=== PATIENT | male | born 1950 | race Caucasian/White ===

== ENCOUNTER 2022-01-24 15:26 | Emergency (ER) | payer OTHER ==
--- NOTE | 2022-01-24 18:13 | RAD REPORT ---
EXAM DESCRIPTION: CT - Head Brain Wo Cont - 01/24/2022 6:00 pm CLINICAL HISTORY: Vision loss COMPARISON: None TECHNIQUE: Computed axial tomography of the head was obtained. IV contrast was not requested. All CT scans are performed using dose optimization technique as appropriate and may include automated exposure control or mA/KV adjustment according to patient size. FINDINGS: An intracranial bleed is not seen . The ventricles are normal in caliber. No extra-axial fluid collection is noted. A small low-density area within the left cerebellum probably an old infarct. . Fluid within the sinuses/ mastoids is not seen. IMPRESSION: No acute intracranial abnormality is seen. If patient's symptoms persist MRI of the bra in would be recommended.
[2022-01-24 19:41] LABS: Hematocrit 42.8 % (39.6-49.0); Lymphocytes % 16.3 % (15.3-44.8); MCV 93.9 fL (80-100); MPV 8.3 fL (7.6-11.3); RBC Red Blood Cell Count 4.56 M/uL (4.33-5.43)
--- NOTE | 2022-01-24 20:29 | ER ---
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 ap3 [facility] and [facility] sent him here to be evaluated due to continued redness and vision loss. patient states the redness and vision loss have been present since the stroke in his eye 3.5 weeks ago. Coronavirus screen: At this time, the client does not indicate any symptoms associated with coronavirus-19. Ebola Screen: No symptoms or risks identified at this time. The patient reports a positive loss of vision. The patient's loss of vision began 3.5 weeks ago. Initial Sepsis Screen: Does the patient meet any 2 criteria? No. Patient's initial sepsis screen is negative. Does the patient have a suspected source of infection? No. Patient's initial sepsis screen is negative. Risk Assessment: Do you want to hurt yourself or someone else? Patient reports no desire to harm self or others. Onset of symptoms was December 31, 2021. 15:37 Method Of Arrival: Ambulatory ap3 15:37 Acuity: SVITLANA 3 ap3 Triage Assessment: 15:40 General: Appears in no apparent distress. Behavior is calm, cooperative. Pain: Denies ap3 pain. EENT: Sclera/Cornea are reddened in outer aspect of conjuctiva of right eye, iris of right eye and inner aspect of conjuctiva of right eye. Neuro: Level of Consciousness is awake, alert, obeys commands, Oriented to person, place, time, situation, Gait is steady, Speech is normal. Cardiovascular: Patient's skin is warm and dry. Respiratory: Airway is patent Respiratory effort is even, unlabored, Respiratory pattern is regular, symmetrical. GI: Patient currently denies nausea, vomiting. Historical: - Allergies: 15:39 No Known Allergies; ap3 - PMHx: 15:39 Myocardial infarction; Hypertensive disorder; Hypercholesterolemia; ap3 15:41 Chronic obstructive lung disease; PTSD; ap3 - Immunization history:: Client reports receiving the 2nd dose of the Covid vaccine. - Social history:: Smoking status: Patient denies any tobacco usage or history of. Screenin:41 Abuse screen: Denies threats or abuse. Nutritional screening: No deficits noted. ap3 Tuberculosis screening: No symptoms or risk factors identified. 19:00 Fall Risk None identified. ke1 Assessment: 16:40 General: Appears comfortable, Behavior is calm, cooperative, Reports. ha1 20:00 Reassessment: Patient appears in no apparent distress at this time. Patient and/or ke1 family updated on plan of care and expected duration. Pain level reassessed. Patient is alert, oriented x 3, equal unlabored respirations, skin warm/dry/pink. Patient states feeling better. wants to go home. Vital Signs: 15:37 BP 151 / 84; Pulse 64; Resp 18; Temp 98.1; Pulse Ox 96% ; Weight 73.94 kg; Height 5 ft. ap3 7 in. (170.18 cm); 16:40 BP 174 / 91; Pulse 63; Resp 16 S; Temp 98.4; Pulse Ox 97% on R/A; Weight 73.94 kg; Pain ha1 0/10; 17:35 BP 166 / 78; Pulse 60; Resp 16 S; Pulse Ox 96% on R/A; ha1 18:30 BP 165 / 78; Pulse 58; Resp 16 S; Pulse Ox 95% on R/A; ha1 21:04 BP 149 / 72; Pulse 62; Resp 18; Pulse Ox 97% on R/A; Pain 0/10; ke1 16:40 Body Mass Index 25.53 (73.94 kg, 170.18 cm) ha1 ED Course: 15:29 Patient arrived in ED. as 15:39 Triage completed. ap3 15:41 Arm band placed on left wrist. ap3 16:43 Yehuda Oh MD is Attending Physician. kdr 16:55 Payal Jenkins, JESSICA is Primary Nurse. ha1 18:02 CT Head Brain wo Cont In Process Unspecified. EDMS 19:00 Bed in low position. Side rails up X 1. Side rails up X2. ke1 19:04 Attending Physician role handed off by Yehuda Oh MD [facility] 19:04 Adrián Suggs MD is Attending Physician. [facility] 19:36 Inserted saline lock: 20 gauge in right antecubital area, using aseptic technique. ke1 20:27 Kj Aguero MD is Referral Physician. [facility] 21:02 No provider procedures requiring assistance completed. ke1 21:03 IV discontinued. ke1 Administered Medications: No medications were administered Medication: 21:03 VIS not applicable for this client. ke1 Outcome: 20:29 Discharge ordered by . 7 21:03 Discharged to home ambulatory. ke1 21:03 Condition: good 21:03 Discharge instructions given to patient. 21:05 Patient left the ED. ke1 Signatures: Dispatcher [employer] EDMS Yehuda Oh MD MD kdr Martinez, Amelia as Prokisch, Amanda RN RN ap3 Adrián Suggs MD MD [facility] Josette Medley RN RN ke1 Payal Jenkins RN RN 1
--- NOTE | 2022-01-24 20:29 | EDPHYS ---
Physician Documentation [facility] Name: Jalen Luong Age: 71 yrs Sex: Male : 1950 Arrival Date: 01/24/2022 Time: 15:29 Bed 19 Private MD: ED Physician Adrián Suggs HPI: 01/24 17:14 This 71 yrs old Male presents to ER via Ambulatory with complaints of Loss Of Vision, kdr Eye Pain. 17:14 The patient is experiencing blurred vision, decreased vision, pain, redness, tearing, kdr The patient sustained Unknown. to the right eye. Onset: The symptoms/episode began/occurred suddenly, 3.5 week(s) ago. Duration: the symptoms are continuous. Aggravated by nothing. Alleviated by nothing. Associated signs and symptoms: Pertinent positives: Pertinent negatives: chills, dizziness, ear ache, fever, headache, runny nose. Patient wears glasses. Severity of symptoms: At their worst the symptoms were mild moderate just prior to arrival, in the emergency department the symptoms are unchanged. The patient has not experienced similar symptoms in the past. Patient had a visit with his senior compliance officer several weeks ago and was given antibiotic drops. Those have not improved or resolved his symptoms. And presented to the [facility] today at which point the forwarded him to the hospital here for evaluation. I have contacted Dr. Aguero who was agreed to see the patient once a CT and some laboratory work has been completed.. Historical: - Allergies: 15:39 No Known Allergies; ap3 - PMHx: 15:39 Myocardial infarction; Hypertensive disorder; Hypercholesterolemia; ap3 15:41 Chronic obstructive lung disease; PTSD; ap3 - Immunization history:: Client reports receiving the 2nd dose of the Covid vaccine. - Social history:: Smoking status: Patient denies any tobacco usage or history of. ROS: 17:14 Constitutional: Negative for fever, chills, and weight loss, ENT: Negative for injury, kdr pain, and discharge, Neck: Negative for injury, pain, and swelling, Cardiovascular: Negative for chest pain, palpitations, and edema. 17:14 Eyes: Positive for blurry vision, pain, photophobia, redness, tearing, vision loss, of the iris of right eye. Exam: 17:14 Constitutional: This is a well developed, well nourished patient who is awake, alert, kdr and in no acute distress. Head/Face: Normocephalic, atraumatic. Neck: Trachea midline, no thyromegaly or masses palpated, and no cervical lymphadenopathy. Supple, full range of motion without nuchal rigidity, or vertebral point tenderness. No Meningismus. Chest/axilla: Normal chest wall appearance and motion. Nontender with no deformity. No lesions are appreciated. Cardiovascular: Regular rate and rhythm with a normal S1 and S2. No gallops, murmurs, or rubs. Normal PMI, no JVD. No pulse deficits. Respiratory: Lungs have equal breath sounds bilaterally, clear to auscultation and percussion. No rales, rhonchi or wheezes noted. No increased work of breathing, no retractions or nasal flaring. Abdomen/GI: Soft, non-tender, with normal bowel sounds. No distension or tympany. No guarding or rebound. No evidence of tenderness throughout. Back: No spinal tenderness. No costovertebral tenderness. Full range of motion. Skin: Warm, dry with normal turgor. Normal color with no rashes, no lesions, and no evidence of cellulitis. MS/ Extremity: Pulses equal, no cyanosis. Neurovascular intact. Full, normal range of motion. Neuro: Awake and alert, GCS 15, oriented to person, place, time, and situation. Cranial nerves II-XII grossly intact. Motor strength 5/5 in all extremities. Sensory grossly intact. Cerebellar exam normal. Normal gait. Psych: Awake, alert, with orientation to person, place and time. Behavior, mood, and affect are within normal limits. 17:14 Eyes: Periorbital structures: Pupils: Patient's pupil on the right is cycle and further reactive. Patient is unable to see anything other than gross shapes out of the right eye.. Vital Signs: 15:37 BP 151 / 84; Pulse 64; Resp 18; Temp 98.1; Pulse Ox 96% ; Weight 73.94 kg; Height 5 ft. ap3 7 in. (170.18 cm); 16:40 BP 174 / 91; Pulse 63; Resp 16 S; Temp 98.4; Pulse Ox 97% on R/A; Weight 73.94 kg; Pain ha1 0/10; 17:35 BP 166 / 78; Pulse 60; Resp 16 S; Pulse Ox 96% on R/A; ha1 18:30 BP 165 / 78; Pulse 58; Resp 16 S; Pulse Ox 95% on R/A; ha1 21:04 BP 149 / 72; Pulse 62; Resp 18; Pulse Ox 97% on R/A; Pain 0/10; ke1 16:40 Body Mass Index 25.53 (73.94 kg, 170.18 cm) ha1 MDM: 17:14 Data reviewed: vital signs, nurses notes, lab test result(s), radiologic studies. kdr Counseling: I had a detailed discussion with the patient and/or guardian regarding: the historical points, exam findings, and any diagnostic results supporting the discharge/admit diagnosis, lab results, radiology results. 18:40 ED course: Dr. Suggs to contact Dr. Aguero with the CT and blood work data. kdr 20:23 Differential diagnosis: Acute iritis of right eye. Ultraviolet keratitis in right eye. [facility] Data interpreted: Pulse oximetry: on room air is 95 %. Interpretation: normal. Response to treatment: the patient's symptoms have mildly improved after treatment. Physician consultation: Kj Aguero MD was contacted at 20:10, regarding patient's condition, and will see patient in office, in 2-3 days. ED course: Discussed with Dr. Aguero about test results as per sign out that was given by Dr. Oh. He wants patient to follow up in his office in 3 days \T\ 1100 AM. Discussed with patient and he is agreeable with follow up plan.. 20:29 Patient medically screened. 7 01/24 17:14 Order name: CBC with Diff; Complete Time: 20:07 kdr 01/24 17:14 Order name: ESR; Complete Time: 20:07 kdr 01/24 17:14 Order name: CT Head Brain wo Cont; Complete Time: 19:01 kdr 01/24 17:14 Order name: CRP; Complete Time: 20:01 kdr Administered Medications: No medications were administered Disposition Summary: 01/24/22 20:29 Discharge Ordered Location: Home mh Problem: an ongoing problem 7 Symptoms: have improved mh7 Condition: Stable 7 Diagnosis - Unqualified visual loss, right eye, normal vision left eye 7 Followup: 7 - With: Kj Aguero MD - When: 01/27/2022 - Reason: Further diagnostic work-up, Recheck today's complaints, Continuance of care Discharge Instructions: - Discharge Summary Sheet 7 - Visual Disturbances [facility] Forms: - Medication Reconciliation Form [facility] - Thank You Letter [facility] - Antibiotic Education [facility] - Prescription Opioid Use [facility] Signatures: Dispatcher [employer] Yehdua Nieto MD MD [facility] Monika Pollard RN RN ap3 Adrián Suggs MD MD [facility]
[2022-01-25 00:29] VITALS: TEMP 98.4
[2022-01-25 00:37] VITALS: BP 149/72; O2SAT 97
== END 2022-01-24 21:05 | disposition home or self-care (01) ==
LOC: ER 15:26
DX: H54.61 Unqualified visual loss, right eye, normal vision left eye (principal); I10 Essential (primary) hypertension; J44.9 Chronic obstructive pulmonary disease, unspecified; I25.2 Old myocardial infarction
CPT/HCPCS: 36415; 70450; 85025; 85652; 86140; 99283

== ENCOUNTER 2024-06-22 22:59 | Inpatient (IN) | payer OTHER ==
[2024-06-22 23:46] LABS: Absolute Basophils 0.1 K/uL (0-0.5); Absolute Lymphocytes (CBC) 0.4 K/uL (0.7-4.9); Absolute Monocytes 0.6 K/uL (0.1-1.3); Absolute Neutrophil 13.8 K/uL (1.8-8.0); Basophils % 0.5 % (0-1.3); Hematocrit 43.4 % (39.6-49.0); Hemoglobin 14.3 g/dL (13.6-17.9); Lymphocytes % 2.5 % (15.3-44.8); MCH 31.6 pg (27.0-35.0); MPV 8.1 fL (7.6-11.3); Monocytes % 4.2 % (3.3-12.3); Neutrophils % 92.8 % (41.7-73.7); Platelets 170 thou/uL (152-406); RBC Red Blood Cell Count 4.52 M/uL (4.33-5.43); Red Cell Distribution Width 13.6 % (12.1-15.2)
[2024-06-22 23:48] LABS: D-Dimer 0.757 FEUug/mL (0-0.500); PT Prothrombin Time 12.9 SECONDS (9.4-12.5); PTT, Activated Partial Thromb 28.9 SECONDS (24.3-36.9); Protime INR 1.16
[2024-06-22 23:56] LABS: Albumin 3.6 g/dL (3.4-5.0); Albumin/Globulin Ratio 0.9 (1.1-1.8); Anion Gap 10.8 mEq/L (5.0-15.0); Bilirubin Direct 0.3 mg/dL (0-0.2); Bilirubin Indirect, Calculated 0.6 mg/dL (0.2-0.8); Bilirubin Total 0.9 mg/dL (0.2-1.0); Globulin 3.9 g/dL (2.3-3.5); Magnesium 1.8 mg/dL (1.6-2.4); Potassium 3.8 mEq/L (3.5-5.1); Protein, Total 7.5 g/dL (6.4-8.2); Troponin High Sensitivity 7.7 pg/mL (<58.9)
[2024-06-23] MEDS ORDERED: CEFTRIAXONE 1000 MG/VIAL ONE (00:05)
[2024-06-23] MEDS ORDERED: ALBUTEROL 2.5 MG/3 ML NEB SOL ONE ×2 (00:05→03:22)
[2024-06-23] MEDS ORDERED: IPRATROPIUM BROM 0.5MG/2.5ML ONE ×2 (00:06→03:22)
[2024-06-23] MEDS ORDERED: NA CHLORIDE 0.9% 1,000 ML ONE ×2 (00:06→03:00)
[2024-06-23] MEDS ORDERED: METHYLPREDNISOLONE 125 MG INJ ONE (00:06)
[2024-06-23] MEDS ORDERED: NA CHLORIDE 0.9% 250 ML ONE ×2 (00:06→03:37)
[2024-06-23] MEDS ORDERED: AZITHROMYCIN 500 MG INJ IVPB ONE (00:06)
[2024-06-23] MEDS ORDERED: NA CHLORIDE 0.9% 50 ML ONE (00:07)
[2024-06-23 01:04] LABS: Band Neutrophils 24 % (0-1); Differential Total Cells Count 100; Lymphocytes 6 % (15-42); Monocytes 6 % (0-10); Reactive Lymphocytes 1 %; Segmented Neutrophils 63 % (40-80)
[2024-06-23 01:05] LABS: Blood Morphology Comment NOT SEEN (NOT SEEN); Platelet Estimate ADEQ
--- NOTE | 2024-06-23 03:27 | RAD REPORT ---
CTA THORAX - PULMONARY ARTERIES HISTORY: Suspected pulmonary embolus. COMPARISON: None. TECHNIQUE: Intravenous low osmolar contrast. Coronal and sagittal reformations including 3D maxim um intensity projections. This exam was performed according to our departmental dose-optimization program, which includes autom ated exposure control, adjustment of the mA and/or kV according to patient size and/or use of iterative reconstruction technique. FINDINGS: PULMONARY ARTERIAL SYSTEM: Contrast bolus is adequate. No CT evidence for pulmonary embolism. CARDIAC: Coronary artery calcifications. AORTA/VASCULAR: No aneurysm. Thoracic aortic atherosclerosis. LYMPH NODES/MEDIASTINUM: No thoracic adenopathy. CENTRAL AIRWAYS: Central airways are patent. LUNGS: Extensive pulmonary emphysema. Diffuse bronchial wall thickening with bronchiectasis with muco us plugging. Multifocal bilateral peribronchovascular opacities, most pronounced in the right middle lobe, left lingula and right lower lobe. PLEURA: Normal. ESOPHAGUS: Collapsed and not well assessed by CT, without obvious abnormality. THYROID: Negative, where seen. CHEST WALL: Normal. UPPER ABDOMEN: Calcified granuloma noted in the liver. 1.3 cm right hepatic lobe cyst. Indeterminat e hypodensity in the pancreatic body measuring 10 mm (series 401, image 10). THORACIC SKELETAL: No acute finding. ADDITIONAL CHEST FINDINGS: None. IMPRESSION: 1. No evidence of acute pulmonary embolus. 2. Multifocal bilateral peribronchovascular opacities, most pronounced in the right middle lobe, le ft lingula and right lower lobe, concerning for atypical infectious/inflammatory process. 3. Diffuse bronchial wall thickening with bronchiectasis and mucous plugging, suggesting bronchitis . 4. Extensive pulmonary emphysema. 5. Indeterminate 10 mm hypodensity in the pancreatic body. Recommend nonemergent pancreatic protoco l MRI for further evaluation. Electronically signed by: Margy Arenas MD 06/23/2024 03:20 AM [facility] Z9 Due to temporary technical issues with the PACS/Smartvue reporting system, reports are being bret d by the in-house radiologist without review as a courtesy to ensure prompt reporting the interpreting radiologist is fully responsible for the content of the report. Transcribed Date/Time: 06/23/2024 3:27 AM
[2024-06-23] MEDS ORDERED: VANCOMYCIN 1 GM/VIAL ONE (03:35)
[2024-06-23] MEDS ORDERED: VANCOMYCIN 500 MG/VIAL ONE (03:35)
[2024-06-23] MEDS ORDERED: NA CHLORIDE 0.9% 500 ML ONE (03:39)
--- NOTE | 2024-06-23 03:40 | ER ---
Nurse's Notes [facility] Name: Jalen Luong Age: 74 yrs Sex: Male : 1950 Arrival Date: 06/22/2024 Time: 22:59 Bed 18 Private MD: Diagnosis: COPD/ Chronic obstructive pulmonary disease with (acute) exacerbation;Acute Bilateral Pneumonia ;Acute respiratory distress Presentation: 06/22 23:18 Chief complaint: Patient states: C/O PRODUCTIVE COUGH AND NAUSEA FOR 1 WK, SOB, DUONEB br2 X2 PER EMS AND ZOFRAN 4MG. Coronavirus screen: Client denies travel out of the [place] in the last 14 days. Ebola Screen: Patient denies exposure to infectious person. Initial Sepsis Screen: Does the patient meet any 2 criteria? HR > 90 bpm. Does the patient have a suspected source of infection? No. Patient's initial sepsis screen is negative. Risk Assessment: Do you want to hurt yourself or someone else? Patient reports no desire to harm self or others. Onset of symptoms was June 20, 2024. 23:18 Method Of Arrival: EMS: [facility] br2 23:18 Acuity: SVITLANA 3 br2 Triage Assessment: 23:21 General: Appears in no apparent distress. Behavior is calm, cooperative. Pain: br2 Complains of pain in anterior aspect of left lateral abdomen Pain does not radiate. Pain currently is 6 out of 10 on a pain scale. Historical: - PMHx: 23:21 Chronic obstructive lung disease; Hypercholesterolemia; Hypertensive disorder; br2 Myocardial infarction; PTSD; - Immunization history:: Adult Immunizations up to date. - Infectious Disease History:: Denies. - Social history:: Smoking status: Patient/guardian denies using tobacco. - Family history:: not pertinent. Screenin:10 [facility] ED Fall Risk Assessment (Adult) History of falling in the last 3 months, rg5 including since admission No falls in past 3 months (0 pts) Confusion or Disorientation No (0 pts) Intoxicated or Sedated No (0 pts) Impaired Gait Yes (1 pt) Mobility Assist Device Used Yes (1 pt) Altered Elimination No (0 pt) Score/Fall Risk Level 3 or more points = High Risk Oriented to surroundings, Maintained a safe environment, Hourly rounding (assess needs \T\ fall precautionary measures) done, Used ambulatory aids as needed (educated on \T\ assisted with). 23:10 Abuse screen: Denies threats or abuse. Nutritional screening: No deficits noted. rg5 Tuberculosis screening: No symptoms or risk factors identified. Assessment: 23:50 Respiratory: Patient placed on BiPAP: Inspiratory Pressure: 12 Expiratory (EPAP) jp4 Pressure: 6 FiO2%: 40 Respiratory Rate: 18. 06/23 01:30 Reassessment: Patient and/or family updated on plan of care and expected duration. Pain rg5 level reassessed. Patient is alert, oriented x 3, equal unlabored respirations, skin warm/dry/pink. Patient states symptoms have improved. 02:30 Reassessment: Patient and/or family updated on plan of care and expected duration. Pain rg5 level reassessed. Patient is alert, oriented x 3, equal unlabored respirations, skin warm/dry/pink. 03:30 Reassessment: Patient and/or family updated on plan of care and expected duration. Pain rg5 level reassessed. Patient is alert, oriented x 3, equal unlabored respirations, skin warm/dry/pink. Patient states symptoms have improved. 04:31 Reassessment: Patient and/or family updated on plan of care and expected duration. Pain rg5 level reassessed. Patient is alert, oriented x 3, equal unlabored respirations, skin warm/dry/pink. Patient states symptoms have improved. Vital Signs: 06/22 23:08 BP 126 / 75 RA Sitting; Pulse 109; Temp 98.1(TE); Pulse Ox 98% on Nebulizer Mask; sa1 23:18 BP 126 / 75; Pulse 109; Resp 24; Temp 98.1; Pulse Ox 99% on NEB; Weight 70.31 kg; br2 Height 5 ft. 7 in. ; Pain 6/10; 06/23 00:12 BP 109 / 68; Pulse 94; Resp 21; Temp 98; Pulse Ox 98% on BiPAP; Pain 0/10; rg5 00:30 BP 117 / 69; Pulse 115; Resp 20; Pulse Ox 98% on BiPAP; Pain 0/10; rg5 01:00 BP 137 / 90; Pulse 110; Resp 20; Pulse Ox 97% on BiPAP; rg5 01:30 BP 113 / 80; Pulse 103; Resp 20; Pulse Ox 98% on BiPAP; rg5 02:30 BP 131 / 85; Pulse 107; Resp 20; Pulse Ox 98% on BiPAP; rg5 02:55 BP 120 / 84; Pulse 110; Resp 19; Pulse Ox 95% on 4 lpm NC; rg5 03:30 BP 121 / 77; Pulse 102; Resp 20; Pulse Ox 94% on 4 lpm NC; rg5 04:29 BP 127 / 77; Pulse 104; Resp 20; Temp 98(O); Pulse Ox 94% on 4 lpm NC; Pain 0/10; rg5 06/22 23:18 Body Mass Index 24.28 (70.31 kg, 170.18 cm) br2 23:18 Pain Scale: Adult br2 06/23 00:12 Pain Scale: Adult rg5 00:30 Pain Scale: Adult rg5 04:29 Pain Scale: Adult rg5 Cashion Coma Score: 03:00 Eye Response: spontaneous(4). Motor Response: obeys commands(6). Verbal Response: sp4 oriented(5). Total: 15. ED Course: 06/22 23:04 Patient arrived in ED. rv1 23:05 Priyank Grider MD is Attending Physician. sp4 23:10 Rambo Thomas RN is Primary Nurse. rg5 23:10 No provider procedures requiring assistance completed. Maintain EMS IV. Dressing rg5 intact. Good blood return noted. Site clean \T\ dry. Gauge \T\ site: 18 gauge left AC. Flushed with 10 mL NS Flushed left antecubital with 5 ml normal saline. 23:10 Patient has correct armband on for positive identification. Bed in low position. Side rg5 rails up X2. Adult w/ patient. Client placed on continuous cardiac and pulse oximetry monitoring. NIBP monitoring applied. auto body detailer on. Pulse ox on. NIBP on. Door closed. Noise minimized. Warm blanket given. Verbal reassurance given. Patient is placed in psych hold. Patient is placed in psych hold. 23:10 Arm band placed on right wrist. rg5 23:21 Triage completed. br2 23:32 EKG done, by ED staff. sa1 23:48 O2 via Bipap, 12/6 at 40% with rate of 18. ABGs drawn. aware of results. No changes jp4 noted to settings. 23:51 Labs ordered per protocol. cg 23:52 ABG drawn. By this RN - PH 7.391, pCO2 41, pO2 56.1, HCO 24.3. aware of results. jp4 06/23 00:09 XRAY CXR (1 view) In Process Unspecified. EDMS 00:26 BIPAP Sent. rg5 02:00 Provided Education on: need for admit. rg5 02:29 CT Chest For PE Angio In Process Unspecified. EDMS 03:38 Prince Barrientos MD is Hospitalizing Provider. sp4 04:32 Patient admitted, IV remains in place. intact, No redness/swelling at site. rg5 Administered Medications: 00:00 Drug: MethylPrednisoLONE IVP 125 mg IVP once Route: IVP; Site: left antecubital; rg5 00:49 Follow up: Response: No adverse reaction rg5 00:00 Drug: Rocephin - Rocephin (cefTRIAXone) IVPB 1 grams IVPB once over 30 mins; (mix in 50 rg5 mL NS) Route: IVPB; Infused Over: 30 mins; Site: left antecubital; 00:30 Follow up: IV Status: Completed infusion; IV Intake: 50ml rg5 00:00 Drug: NS 0.9% IV 500 ml 500 ml IV at 1 bolus once; to be given as a bolus over 30 rg5 minutes Volume: 500 ml; Route: IV; Rate: 1 bolus; Site: left antecubital; 00:30 Follow up: IV Intake: 500ml rg5 03:43 Follow up: IV Status: Completed infusion rg5 00:25 Drug: Albuterol Inhalation 2.5 mg Inhalation once Route: Inhalation; rg5 00:25 Drug: Ipratropium Inhalation Aerosol 0.5 mg Inhalation once Route: Inhalation; rg5 00:25 Drug: Zithromax IVPB 500 mg IVPB once over 1 hrs; mix in 250 mL NS Route: IVPB; Infused rg5 Over: 1 hrs; Site: left antecubital; 00:30 Follow up: IV Status: Completed infusion; IV Intake: 250ml rg5 00:35 Drug: NS 0.9% IV 1000 ml IV at 125 ml/hr Per protocol; to be given as a bolus over 60 rg5 minutes Route: IV; Rate: 125 ml/hr; Site: left antecubital; 03:20 Drug: Albuterol Inhalation 2.5 mg Inhalation once Route: Inhalation; rg5 03:20 Drug: Ipratropium Inhalation Aerosol 0.5 mg Inhalation once Route: Inhalation; rg5 03:41 Drug: vancoMYCIN IVPB 1.5 grams IVPB at calculated rate once Route: IVPB; Rate: rg5 calculated rate; Site: left antecubital; Medication: 00:00 VIS not applicable for this client. rg5 Intake: 00:30 IV: 250ml; Total: 250ml. rg5 00:30 IV: 500ml; Total: 750ml. rg5 00:30 IV: 50ml; Total: 800ml. rg5 Ventilator: 06/22 23:49 Fi02: 40%; Rate: 18min; jp4 23:49 bipap 05/27 at 40% jp4 Outcome: 06/23 03:39 Decision to Hospitalize by Provider. sp4 04:32 Admitted to Med/surg accompanied by tech, via stretcher, with oxygen, rg5 04:32 Condition: stable 04:32 Instructed on the need for admit, 05:18 Patient left the ED. rg5 Signatures: Dispatcher [employer] Juana Gaspar, RN RN Carmen Brito rvPriyank Beard MD MD sp4 Ramu Velasco RN RN jp4 Rambo Thomas RN RN rg5 Sultan Julio Cesar sa1 Tiarra Gibbons RN RN br2
--- NOTE | 2024-06-23 03:40 | EDPHYS ---
Physician Documentation [facility] Name: Jalen Luong Age: 74 yrs Sex: Male : 1950 Arrival Date: 06/22/2024 Time: 22:59 Bed 18 Private MD: ED Physician Priyank Grider HPI: 06/22 23:55 This 74 yrs old Male presents to ER via EMS with complaints of dyspnea. sp4 06/23 02:59 74-year-old male with history of COPD, hypercholesterolemia, hypertension and NC sp4 presents with EMS with acute worsening shortness of breath starting 3 days ago.. 03:00 Patient reported associated cough and nausea.. sp4 Historical: - PMHx: 06/22 23:21 Chronic obstructive lung disease; Hypercholesterolemia; Hypertensive disorder; br2 Myocardial infarction; PTSD; - Immunization history:: Adult Immunizations up to date. - Infectious Disease History:: Denies. - Social history:: Smoking status: Patient/guardian denies using tobacco. - Family history:: not pertinent. ROS: 06/23 02:59 Constitutional: Negative for fever, chills, and weight loss, positive dyspnea at rest sp4 positive dyspnea on exertion All other systems are negative, Exam: 03:00 Constitutional: This is a well developed, well nourished patient who is awake, alert, sp4 moderate respiratory distress on high flow oxygen Head/Face: Normocephalic, atraumatic. Eyes: Pupils equal round and reactive to light, extra-ocular motions intact. Lids and lashes normal. Conjunctiva and sclera are not injected. Cornea within normal limits. Periorbital areas with no swelling, redness, or edema. ENT: Nares patent. No nasal discharge, no septal abnormalities noted. Tympanic membranes are normal and external auditory canals are clear. Oropharynx with no redness, swelling, or masses, exudates, or evidence of obstruction, uvula midline. Mucous membranes moist. Neck: Trachea midline, no thyromegaly or masses palpated, and no cervical lymphadenopathy. Supple, full range of motion without nuchal rigidity, or vertebral point tenderness. Chest/axilla: Normal chest wall appearance and motion. Nontender with no deformity. No lesions are appreciated. Cardiovascular: Regular rate and rhythm with a normal S1 and S2. No gallops, murmurs, or rubs. Normal PMI, no JVD. No pulse deficits. Respiratory: Lungs have equal breath sounds bilaterally, positive wheezing bilaterally positive dyspnea and tachypnea Abdomen/GI: Soft, with normal bowel sounds. No distension or tympany. No guarding or rebound. No evidence of tenderness throughout. Back: No spinal tenderness. No costovertebral tenderness. Skin: Warm, dry with normal turgor. Normal color with no rashes, no lesions, and no evidence of cellulitis. MS/ Extremity: Pulses equal, no cyanosis. Neurovascular intact. Full, normal range of motion. Neuro: Awake and alert, GCS 15, oriented to person, place, time, and situation. Cranial nerves II-XII grossly intact. Motor strength 5/5 in all extremities. Sensory grossly intact. 03:00 ECG was reviewed by the Attending Physician. EKG 2328 sinus tachycardia rate 113, right bundle branch block otherwise unremarkable Vital Signs: 06/22 23:08 BP 126 / 75 RA Sitting; Pulse 109; Temp 98.1(TE); Pulse Ox 98% on Nebulizer Mask; sa1 23:18 BP 126 / 75; Pulse 109; Resp 24; Temp 98.1; Pulse Ox 99% on NEB; Weight 70.31 kg; br2 Height 5 ft. 7 in. ; Pain 6/10; 06/23 00:12 BP 109 / 68; Pulse 94; Resp 21; Temp 98; Pulse Ox 98% on BiPAP; Pain 0/10; rg5 00:30 BP 117 / 69; Pulse 115; Resp 20; Pulse Ox 98% on BiPAP; Pain 0/10; rg5 01:00 BP 137 / 90; Pulse 110; Resp 20; Pulse Ox 97% on BiPAP; rg5 01:30 BP 113 / 80; Pulse 103; Resp 20; Pulse Ox 98% on BiPAP; rg5 02:30 BP 131 / 85; Pulse 107; Resp 20; Pulse Ox 98% on BiPAP; rg5 02:55 BP 120 / 84; Pulse 110; Resp 19; Pulse Ox 95% on 4 lpm NC; rg5 03:30 BP 121 / 77; Pulse 102; Resp 20; Pulse Ox 94% on 4 lpm NC; rg5 04:29 BP 127 / 77; Pulse 104; Resp 20; Temp 98(O); Pulse Ox 94% on 4 lpm NC; Pain 0/10; rg5 06/22 23:18 Body Mass Index 24.28 (70.31 kg, 170.18 cm) br2 23:18 Pain Scale: Adult br2 06/23 00:12 Pain Scale: Adult rg5 00:30 Pain Scale: Adult rg5 04:29 Pain Scale: Adult rg5 [place] Coma Score: 03:00 Eye Response: spontaneous(4). Motor Response: obeys commands(6). Verbal Response: sp4 oriented(5). Total: 15. 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 COMPARISON: XR Chest 07/10/2023. FINDINGS: 1 view of the chest (AP portable projection) was obtained. No prior films are available at this time for comparison. There is mild hyperinflation. Mediastinum: The cardiomediastinal silhouette appears normal in size and shape. Lungs: There are bilateral lower lung zone opacities possibility of bibasilar infiltrate versus less likely atelectasis could be of consideration. Heart: The heart is normal in size. Thoracic aorta: The thoracic aorta demonstrate to be normal. Pulmonary vasculature: The pulmonary vasculature is normal in distribution. Pleura: The costophrenic angles demonstrate to be sharp. Osseous structures: The bony structures demonstrate to be within normal limits. Other: External EKG leads within the [id number] limits diagnosis. IMPRESSION: Bilateral lower lung zone opacities possibility of bibasilar infiltrate versus less likely atelectasis could be of consideration.. 03:03 Differential diagnosis: Anxiety Reaction asthma, Bronchitis CHF exacerbation, Chronic sp4 Obstructive Pulmonary Disease Myocardial Infarction pneumonia. Antibiotic administration: Rocephin IV and Zithromax IV . Data reviewed: vital signs, nurses notes, EMS record, lab test result(s), EKG, radiologic studies. ED course: Chest X ray - IMPRESSION: Bilateral lower lung zone opacities possibility of bibasilar infiltrate versus less likely atelectasis could be of consideration. . 03:28 ED course: CTA THORAX - PULMONARYARTERIES HISTORY: Suspected pulmonary embolus. sp4 COMPARISON: None. TECHNIQUE: Intravenous low osmolar contrast. Coronal and sagittal reformations including 3D maximum intensity projections. This exam was performed according to our departmental dose-optimization program, which includes automated exposure control, adjustment of the mA and/or kV according to patient size and/or use of iterative reconstruction technique. FINDINGS: PULMONARYARTERIAL SYSTEM: Contrast bolus is adequate. No CT evidence for pulmonary embolism. CARDIAC: Coronary artery calcifications. AORTA/VASCULAR: No aneurysm. Thoracic aortic atherosclerosis. LYMPH NODES/MEDIASTINUM: No thoracic adenopathy. CENTRAL AIRWAYS: Central airways are patent. LUNGS: Extensive pulmonary emphysema. Diffuse bronchial wall thickening with bronchiectasis with mucous plugging. Multifocal bilateral peribronchovascular opacities, most pronounced in the right middle lobe, left lingula and right lower lobe. PLEURA: Normal. ESOPHAGUS: Collapsed and not well assessed by CT, without obvious abnormality. THYROID: Negative, where seen. CHEST WALL: Normal. UPPER ABDOMEN: Calcified granuloma noted in the liver. 1.3 cm right hepatic lobe cyst. Indeterminate hypodensity in the pancreatic body measuring 10 mm (series 401, image 10). THORACIC SKELETAL: No acute finding. ADDITIONAL CHEST FINDINGS: None. IMPRESSION: 1. No evidence of acute pulmonary embolus. 2. Multifocal bilateral peribronchovascular opacities, most pronounced in the right middle lobe, left lingula and right lower lobe, concerning for atypical infectious/inflammatory process. 3. Diffuse bronchial wall thickening with bronchiectasis and mucous plugging, suggesting bronchitis. 4. Extensive pulmonary emphysema. 5. Indeterminate 10 mm hypodensity in the pancreatic body. Recommend nonemergent pancreatic protocol MRI for further evaluation. Electronically signed by: Margy Arenas MD 06/23/2024 03:20 AM . 03:46 ED course: Patient is stable on 4 L nasal cannula. Patient is stable for admission here 4 without BiPAP. At this time repeating breathing treatment.. 06/22 23:06 Order name: BMP; Complete Time: 00:58 sp4 06/22 23:06 Order name: Blood Culture Adult (2) sp4 06/22 23:06 Order name: CBC with Diff; Complete Time: 01:47 sp4 06/22 23:06 Order name: CPK; Complete Time: 00:58 sp4 06/22 23:06 Order name: D-Dimer; Complete Time: 00:58 sp4 06/22 23:06 Order name: Hepatic Function; Complete Time: 00:58 sp4 06/22 23:06 Order name: Lipase; Complete Time: 00:58 sp4 06/22 23:06 Order name: Magnesium; Complete Time: 00:58 sp4 06/22 23:06 Order name: NT PRO-BNP; Complete Time: 00:58 sp4 06/22 23:06 Order name: PT-INR; Complete Time: 00:58 sp4 06/22 23:06 Order name: Ptt, Activated; Complete Time: 00:58 sp4 06/22 23:06 Order name: Troponin HS; Complete Time: 00:58 sp4 06/22 23:06 Order name: ABG sp4 06/22 23:41 Order name: Lactate w/ 2H reflex if indic.; Complete Time: 00:58 5 06/22 23:58 Order name: Manual Differential; Complete Time: 01:47 EDMS 06/23 00:03 Order name: Ghost Lactate-NO COLLECT Timer; Complete Time: 03:04 EDMS 06/23 03:05 Order name: Influenza Screen (a \T\ B); Complete Time: 04:51 sp4 06/23 03:05 Order name: SARS RAPID; Complete Time: 04:51 sp4 06/23 03:17 Order name: Lactate w/ 2H reflex if indic. rg5 06/23 03:49 Order name: Magnesium EDMS 06/23 03:49 Order name: Phosphorus EDMS 06/23 03:49 Order name: Urinalysis w/ reflexes EDMS 06/23 03:49 Order name: Basic Metabolic Panel EDMS 06/23 03:49 Order name: Basic Metabolic Panel EDMS 06/23 03:49 Order name: CBC with Automated Diff EDMS 06/23 03:49 Order name: CBC with Automated Diff EDMS 06/23 03:49 Order name: Lipid Profile EDMS 06/23 03:49 Order name: Lipid Profile EDMS 06/23 03:49 Order name: NT PRO-BNP EDMS 06/23 03:49 Order name: NT PRO-BNP EDMS 06/23 03:49 Order name: Troponin High Sensitivity EDMS 06/23 04:10 Order name: Lactate Sepsis 2 HR Follow-up; Complete Time: 04:51 EDMS 06/22 23:06 Order name: XRAY CXR (1 view) [facility] 06/22 23:06 Order name: BIPAP 4 06/23 01:47 Order name: CT Chest For PE Angio 4 06/22 23:06 Order name: EKG; Complete Time: 23:07 4 06/23 03:49 Order name: Physical Therapy Consult [facility] 06/22 23:06 Order name: Cardiac monitoring; Complete Time: 23:10 4 06/22 23:06 Order name: EKG - Nurse/Tech; Complete Time: 23:33 4 06/22 23:06 Order name: IV Saline Lock; Complete Time: 23:10 4 06/22 23:06 Order name: Labs collected and sent; Complete Time: 23:38 4 06/22 23:06 Order name: O2 Per Protocol; Complete Time: 23:16 4 06/22 23:06 Order name: O2 Sat Monitoring; Complete Time: 23:16 sp4 EC/01 23:28 Rate is 113 beats/min. Rhythm is regular, Sinus tachycardia. QRS [place] is Normal. LA sp4 interval is normal. QRS interval is prolonged. QT interval is normal. No Q waves. T waves are Normal. No ST changes noted. Clinical impression: No evidence of ischemia. Interpreted by me. Reviewed by me. Administered Medications: 06/23 00:00 Drug: MethylPrednisoLONE IVP 125 mg IVP once Route: IVP; Site: left antecubital; rg5 00:49 Follow up: Response: No adverse reaction rg5 00:00 Drug: Rocephin - Rocephin (cefTRIAXone) IVPB 1 grams IVPB once over 30 mins; (mix in 50 rg5 mL NS) Route: IVPB; Infused Over: 30 mins; Site: left antecubital; 00:30 Follow up: IV Status: Completed infusion; IV Intake: 50ml rg5 00:00 Drug: NS 0.9% IV 500 ml 500 ml IV at 1 bolus once; to be given as a bolus over 30 rg5 minutes Volume: 500 ml; Route: IV; Rate: 1 bolus; Site: left antecubital; 00:30 Follow up: IV Intake: 500ml rg5 03:43 Follow up: IV Status: Completed infusion rg5 00:25 Drug: Albuterol Inhalation 2.5 mg Inhalation once Route: Inhalation; rg5 00:25 Drug: Ipratropium Inhalation Aerosol 0.5 mg Inhalation once Route: Inhalation; rg5 00:25 Drug: Zithromax IVPB 500 mg IVPB once over 1 hrs; mix in 250 mL NS Route: IVPB; Infused rg5 Over: 1 hrs; Site: left antecubital; 00:30 Follow up: IV Status: Completed infusion; IV Intake: 250ml rg5 00:35 Drug: NS 0.9% IV 1000 ml IV at 125 ml/hr Per protocol; to be given as a bolus over 60 rg5 minutes Route: IV; Rate: 125 ml/hr; Site: left antecubital; 03:20 Drug: Albuterol Inhalation 2.5 mg Inhalation once Route: Inhalation; rg5 03:20 Drug: Ipratropium Inhalation Aerosol 0.5 mg Inhalation once Route: Inhalation; rg5 03:41 Drug: vancoMYCIN IVPB 1.5 grams IVPB at calculated rate once Route: IVPB; Rate: rg5 calculated rate; Site: left antecubital; Disposition: 03:39 Critical Care: not applicable. sp4 Disposition Summary: 06/23/24 03:39 Hospitalization Ordered Notes: Hospitalization Status: Inpatient Admission sp4 Provider: Prince benjamin Barrientos Location: Telemetry/[facility]Sur (Inpatient) sp4 Condition: Fair sp4 Problem: new sp4 Symptoms: have improved sp4 Bed/Room Type: Standard sp4 Room Assignment: 224(06/23/24 04:06) rv1 Diagnosis - COPD/ Chronic obstructive pulmonary disease with (acute) exacerbation sp4 - Acute Bilateral Pneumonia sp4 - Acute respiratory distress sp4 Forms: - Medication Reconciliation Form sp4 - SBAR form sp4 - Leadership Thank You Letter sp4 Critical care time excluding procedures: 03:39 Critical care time: Bedside Care: 36 minutes, Consultation: 12 minutes, Family sp4 Intervention: 12 minutes. Total time: 60 minutes Signatures: Dispatcher [employer] Carmen Ch rv1 Priyank Grider MD MD sp4 Rambo Thomas RN RN rg5 Tiarra Gibbons RN RN br2 Corrections: (The following items were deleted from the chart) 06/22 23:07 23:07 BASIC METABOLIC PANEL+C.LAB.BRZ ordered. EDMS EDMS 23:07 23:07 BLOOD CULTURE*+BA.LAB.BRZ ordered. EDMS EDMS 23:07 23:07 CBC+H.LAB.BRZ ordered. EDMS EDMS 23:07 23:07 CREATINE PHOSPHOKINASE+C.LAB.BRZ ordered. EDMS EDMS 23:07 23:07 D-DIMER+COAG.LAB.BRZ ordered. EDMS EDMS 23:07 23:07 HEPATIC FUNCTION+C.LAB.BRZ ordered. EDMS EDMS 23:07 23:07 LIPASE+C.LAB.BRZ ordered. EDMS EDMS 23:07 23:07 MAGNESIUM+C.LAB.BRZ ordered. EDMS EDMS 23:07 23:07 PROBNP+C.LAB.BRZ ordered. EDMS EDMS 23:07 23:07 PROTIME (+INR)+COAG.LAB.BRZ ordered. EDMS EDMS 23:07 23:07 PTT, ACTIVATED+COAG.LAB.BRZ ordered. EDMS EDMS 23:07 23:07 Troponin High Sensitivity+C.LAB.BRZ ordered. EDMS EDMS 06/23 03:05 03:05 Influenza Screen (A \T\ B)+BA.LAB.BRZ ordered. EDMS EDMS 03:05 03:05 SARS-COV-2 Antigen Rapid+I.LAB.BRZ ordered. EDMS EDMS 03:17 03:17 LACTATE+C.LAB.BRZ ordered. EDMS EDMS 03:45 06/22 23:06 Saavedra ordered. sp4 rg5 06/23 04:06 03:39 sp4 rv1
[2024-06-23] MEDS ORDERED: ONDANSETRON 4 MG/2 ML VIAL IV PRN (03:41)
[2024-06-23] MEDS ORDERED: VANCOMYCIN 1.25 GM in NA CHLORIDE 0.9% 250 ML IVPB SCH (03:41)
[2024-06-23] MEDS ORDERED: ACETAMINOPHEN 500 MG TAB PO PRN (03:41)
[2024-06-23] MEDS ORDERED: ALBUTEROL 2.5 MG/3 ML NEB SOL NEB PRN (03:41)
[2024-06-23] MEDS ORDERED: SODIUM CHLORIDE 0.9% 10ML INJ IV PRN (03:57)
--- NOTE | 2024-06-23 03:57 | P.HP ---
Certification for Inpatient Patient admitted to: Inpatient With expected LOS: >2 Midnights Practitioner: I am a practitioner with admitting privileges, knowledge of patient current condition, hospital course, and medical plan of care. Services: Services provided to patient in accordance with Admission requirements found in Title 42 Section 412.3 of the Code of Federal Regulations Patient History Date of Service: 06/23/24 Reason for admission: COPD exacerbation and multifocal PNA History of Present Illness: Patient is a 74 year old male with COPD, HTN, HLD. He presents with shortness of breath ongoing for the past 3 days. His symptoms are acutely worsening. His associated symptoms include productive cough. He has been found to have multifocal PNA and extensive COPD as per CTA chest. He required BIPAP in the ER and has been weaned off. During my evaluation, patient was still dyspneic. He is on 3.5 L via nasal cannula. He still having productive cough Physical Examination - Studies Laboratory Data (last 24 hrs) 06/22/24 06/22/24 06/22/24 23:30 23:30 23:30 WBC 14.90 H Hgb 14.3 Hct 43.4 Plt Count 170 PT 12.9 H INR 1.16 APTT 28.9 Sodium 138 Potassium 3.8 BUN 15 Creatinine 1.26 Glucose 144 H Magnesium 1.8 Total Bilirubin 0.9 AST 12 L ALT 16 Alkaline Phosphatase 76 Lipase 14 Assessment and Plan - Problems (Diagnosis) (1) Multifocal pneumonia Current Visit: Yes Status: Acute (2) COPD exacerbation Current Visit: Yes Status: Acute (3) Hypertension Current Visit: Yes Status: Acute (4) Hyperlipidemia Current Visit: Yes Status: Acute (5) Acute respiratory failure Current Visit: Yes Status: Acute - Plan Assessment Patient is a 74 year old male being admitted for COPD exacerbation and Multifocal PNA after he presetned wtih shortness of breath. Patient meets criter ia for sepsis Severe sepsis Acute respiratory failure Lactic acid Multifocal pneumonia COPD exacerbation HTN HLD PLAN: Will admit inpatient with telemetry Start broad spectrum abx including vancomycin and meropenem Check MRSA screen. If negative, discontinue vancomycin Follow respiratory and blood cultures Solumedrol, Duonebs and Dulera for COPD exacerbation GI and VTE ppx - Advance Directives Does patient have a Living Will: No Does patient have a Durable POA for Healthcare: No
[2024-06-23 04:28] LABS: SARS-CoV-2 Antigen CONTROL BLUE LINE VIS/BG OK
[2024-06-23 04:29] LABS: SARS-CoV-2 Antigen Rapid Res Negative (Negative)
[2024-06-23 05:51] VITALS: BMI 24.3
--- NOTE | 2024-06-23 06:15 | RAD REPORT ---
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 COMPARISON: XR Chest 07/10/2023. FINDINGS: 1 view of the chest (AP portable projection) was obtained. No prior films are available at this dean e for comparison. There is mild hyperinflation. Mediastinum: The cardiomediastinal silhouette appears normal in size and shape. Lungs: There are bilateral lower lung zone opacities possibility of bibasilar infiltrate versus less likely atelectasis could be of consideration. Heart: The heart is normal in size. Thoracic aorta: The thoracic aorta demonstrate to be normal. Pulmonary vasculature: The pulmonary vasculature is normal in distribution. Pleura: The costophrenic angles demonstrate to be sharp. Osseous structures: The bony structures demonstrate to be within normal limits. Other: External EKG leads within the [id number]-mo-wyjm limits diagnosis. IMPRESSION: Bilateral lower lung zone opacities possibility of bibasilar infiltrate versus less likely atelectasi s could be of consideration. Electronically signed by: Jose R Moran MD 06/23/2024 12:42 AM WORKS MANAGER RP Due to temporary technical issues with the PACS/[employer] reporting system, reports are being bret d by the in-house radiologist without review as a courtesy to ensure prompt reporting the interpreting radiologist is fully responsible for the content of the report. Transcribed Date/Time: 06/23/2024 6:15 AM
[2024-06-23] MEDS: PANTOPRAZOLE 40 MG INJ IVP SCH (07:00)
[2024-06-23 10:13] LABS: Phosphorus 2.5 mg/dL (2.5-4.9)
--- NOTE | 2024-06-23 10:31 | P.PN ---
Date of Service: 06/23/24 Patient is a 74 year old male with COPD, HTN, HLD. He presents with shortness of breath ongoing for the past 3 days. His symptoms are acutely worsening. His associated symptoms include productive cough. He has been found to have multifocal PNA and extensive COPD as per CTA chest. He required BIPAP in the ER and has been weaned off. #1 acute hypoxic respiratory failure due to #2 and 3 2. Multifocal pneumonia with sepsis 3. Acute exacerbation of COPD associated with #2 Stable on nasal cannula 4 L/min, leukocytosis of WBC 14.9, glucose 144, serum CO2 26, normal renal function test Test negative for influenza A and B and COVID-19, CT of the chest personally reviewed pulmonary emphysema, multifocal pneumonia with bronchiectasis, no PE I will continue IV vancomycin and meropenem for the risk of Pseudomonas, I will discontinue IV Vanco once sputum culture can be rule out Staphylococcus infection, sputum culture ordered, will continue Solu-Medrol 40 mg every 8 hour, scheduled DuoNeb 4. Incidental pancreatic mass CT of the chest demonstrated 1 cm hypodense lesion in body of pancreas, MRI of the abdomen has been ordered
[2024-06-23] MEDS: DULERA 200/5 (MOMETASONE/FORMOTEROL) INHALER IH SCH (10:43)
[2024-06-23] MEDS: ENOXAPARIN 40 MG/0.4 ML SQ SCH (10:44)
[2024-06-23] MEDS: ASPIRIN EC 81 MG TAB PO SCH (10:44)
[2024-06-23] MEDS: METHYLPREDNISOLONE 40 MG INJ IV SCH (10:44)
[2024-06-23] MEDS: BENZONATATE 100 MG CAP PO SCH (10:44)
[2024-06-23 10:46] LABS: Arterial Blood Carboxyhemoglob 1.3 % (0-1.5); Blood Gas Oxyhemoglobin 85.6 % (94-97); Blood O2 Saturation 88.5 % (92-98.5)
[2024-06-23 10:47] LABS: Blood Gas THB 14.7 g/dl (12-18)
[2024-06-23] MEDS: guaiFENesin 100 MG/5 ML UCUP PO PRN (10:59)
[2024-06-23] MEDS: Meropenem 1,000 MG in NA CHLORIDE 0.9% 100 ML IV SCH (11:20)
[2024-06-23] MEDS: NA CHLORIDE 0.9% 1,000 ML IV SCH (11:20)
--- NOTE | 2024-06-23 11:37 | RAD REPORT ---
EXAMINATION: MRI ABDOMEN WITHOUT AND WITH CONTRAST CLINICAL INDICATION: Pancreatic mass TECHNIQUE: Multiplanar, multi sequence imaging of the abdomen was performed before and after administ ration of 15 cc Magnevist IV contrast. Unless otherwise specified, incidental findings do not require dedicated imaging follow-up. Unless otherwise specified, incidental findings do not require d edicated imaging follow-up. COMPARISON: CT June 23, 2024. FINDINGS: 11 mm cystic mass pancreatic body. No enhancement seen. Additional 12 mm bilobed cystic mass pancreatic tail. No enhancement seen in Remainder pancreas normal size and signal. 15 mm cyst left lobe liver. Ventral hernia upper abdomen midline contains fat. The neck measures 2.5 cm. The hernia sac measures 5.4 cm. IMPRESSION: 12 and 11 mm pancreatic cystic masses probably intraductal papillary mucinous neoplasm. Follow-up MRI in one year recommended for reevaluation
[2024-06-24] MEDS: VANCOMYCIN 1.25 GM in NA CHLORIDE 0.9% 250 ML IVPB SCH (03:02)
[2024-06-24] MEDS ORDERED: VANCOMYCIN 1.25 GM in NA CHLORIDE 0.9% 250 ML IVPB SCH (04:00)
[2024-06-24 04:37] LABS: Absolute Lymphocytes (CBC) 0.2 K/uL (0.7-4.9); Absolute Monocytes 0.3 K/uL (0.1-1.3); Absolute Neutrophil 10.4 K/uL (1.8-8.0); Hematocrit 34.2 % (39.6-49.0); Hemoglobin 11.8 g/dL (13.6-17.9); Lymphocytes % 2.3 % (15.3-44.8); MCHC 34.4 g/dL (32.0-36.0); MCV 95.8 fL (80-100); MPV 8.4 fL (7.6-11.3); Monocytes % 2.8 % (3.3-12.3); Platelets 147 thou/uL (152-406); RBC Red Blood Cell Count 3.57 M/uL (4.33-5.43); Red Cell Distribution Width 13.5 % (12.1-15.2)
[2024-06-24 04:40] LABS: Neutrophils % 94.9 % (41.7-73.7)
[2024-06-24 04:48] LABS: Anion Gap 7.2 mEq/L (5.0-15.0); Potassium 4.2 mEq/L (3.5-5.1)
[2024-06-24] MEDS: METHYLPREDNISOLONE 40 MG INJ IV SCH (08:46)
[2024-06-24] MEDS: Levofloxacin 750mg IV 750 MG/150 ML BAG IV SCH (10:30)
--- NOTE | 2024-06-24 11:10 | P.PN ---
Subjective Date of Service: 06/24/24 Chief Complaint: COPD exacerbation and multifocal PNA Subjective: Improving Patient states that he his shortness of breath slightly improving, but coughing up a lot of phlegm but no hemoptysis, denied any dizziness or chest pain or GI symptoms. Review of Systems Other: Consitutional; fever(-), chills (-), rigor(-), night sweat(-), unintentional weight loss(-), malaise (-) HEENT; diplopia (-), rhinorrhea (-), epistaxis (-), otorrhea (-), otalgia (-) Respiratory; shortness of breath (+), wheezing (-), cough (+), sputum (+), pleuritic chest pain (-) Cardiovascular; chest pain (-), peripheral edema (-), paroxysmal nocturnal dyspnea (-), orthopnea (-) Gastrointestinal; nausea (-), vomiting (-), abdominal pain (-), diarrhea (-), constipation (-), melena (-), hematochezia (-) Genitourinary; urinary frequency (-), dysuria (-), urgency (-), flank pain (-), gross hematuria (-), incontinence (-) Skin; rash (-), pruritus (-) 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 General: Chronic ill- looking, in no apparent distress,. HEENT: Normocephalic, atraumatic, nonicteric sclera, nonanemic conjunctive. Neck: Supple, without JVD or goiter or thyroid mass. Respiratory: Normal breathing effort, decreased breath sound, less end expiratory wheezing, crackles crackles at the lung bases. Cardiovascular: Regular rate and rhythm, S1, S2 normal, no murmur no gallop. Gastrointestinal: Normal bowel sounds, nondistended, nontender, No ascites, , No masses, no hepatosplenomegaly. Extremities : No clubbing, No peripheral edema, full range of motion, no deformity, no muscle atrophy. Integumentary: No rashes, petechia, suspected lesions. Lymphatics: No axilla or cervical lymphadenopathy. Neurology; alert awake oriented x3, no focal neurologic deficit, normal affection . mood and behavior. Assessment And Plan - Plan This is a 74 year old male with COPD, HTN, HLD. He presents with shortness of breath ongoing for the past 3 days. His symptoms are acutely worsening. His associated symptoms include productive cough. He has been found to have multifocal PNA and extensive COPD as per CTA chest. He required BIPAP in the ER and has been weaned off. #1 acute hypoxic respiratory failure due to #2 and 3 Are stable on nasal cannula 4 L/min 2. Multifocal pneumonia with sepsis 3. Acute exacerbation of COPD associated with #2 Remained afebrile, gradually improving, leukocytosis rate normalized, serum CO2 26, Test negative for influenza A and B and COVID-19, CT of the chest pulmonary emphysema, multifocal pneumonia with bronchiectasis, no PE Sputum culture reviewed, inadequate sputum collection, no risk for MRSA or Pseudomonas, I will downgrade antibiotics to levofloxacin 750 mg twice daily, I will request another sputum culture, I will titrate down methylprednisolone to 40 mg twice daily ,keep scheduled DuoNeb 4. Incidental pancreatic mass CT of the chest demonstrated 1 cm hypodense lesion in body of pancreas, MRI of the abdomen has been ordered DVT prophylaxis enoxaparin subcu Disposition; discharge home in a few days
--- NOTE | 2024-06-24 12:44 | EKG ---
Test Date: 2024-06-22 Test Time: 23:28:15 Web Assistant: MEASUREMENT RESULTS: Intervals: Rate: 113 AK: 128 QRSD: 94 QT: 306 QTc: 419 [place]: P: 89 AK: 128 QRS: 226 T: 72 INTERPRETIVE STATEMENTS: Sinus tachycardia Low voltage QRS Incomplete right bundle branch block Possible Inferior infarct, age undetermined Possible Anterolateral infarct, age undetermined Abnormal ECG No previous ECG available for comparison Electronically Signed On 06-24-24 12:41:24 VIDEO SURVEILLANCE TECHNICIAN by Fitz Leroy
[2024-06-24] MEDS: IPRATROPIUM BROM 0.5MG/2.5ML NEB PRN (14:16)
[2024-06-24] MEDS: ALBUTEROL 2.5 MG/3 ML NEB SOL NEB PRN (14:16)
[2024-06-25] MEDS: ATORVASTATIN 20 MG TAB PO SCH (08:49)
[2024-06-25] MEDS: LOSARTAN POTASSIUM 50 MG TABLET PO SCH (08:49)
[2024-06-25] MEDS: SERTRALINE HCL 100 MG TAB PO SCH (08:51)
--- NOTE | 2024-06-25 09:47 | P.PN ---
Subjective Date of Service: 06/25/24 Chief Complaint: COPD exacerbation and multifocal PNA Subjective: Improving Patient said he is doing better, but complaining of sinus discharge and postnasal drip, concerned about the abdominal ventral hernia but no abdominal pain tolerating oral diet well. He does not use oxygen at home. Review of Systems Other: Consitutional; fever(-), chills (-), rigor(-), night sweat(-), unintentional weight loss(-), malaise (-) HEENT; diplopia (-), rhinorrhea (-), epistaxis (-), otorrhea (-), otalgia (-), nasal congestion (+), postnasal drip(+) Respiratory; shortness of breath (-), wheezing (-), cough (+), sputum (+), p leuritic chest pain (-) Cardiovascular; chest pain (-), peripheral edema (-), paroxysmal nocturnal dyspnea (-), orthopnea (-) Gastrointestinal; nausea (-), vomiting (-), abdominal pain (-), diarrhea (-), constipation (-), melena (-), hematochezia (-) Genitourinary; urinary frequency (-), dysuria (-), urgency (-), flank pain (-), gross hematuria (-), incontinence (-) Skin; rash (-), pruritus (-) 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 General: Chronic ill- looking, in no apparent distress,. HEENT: Normocephalic, atraumatic, nonicteric sclera, nonanemic conjunctive. Neck: Supple, without JVD or goiter or thyroid mass. Respiratory: Normal breathing effort, improved breath sound, no more wheezing but crackles at the lung bases. Cardiovascular: Regular rate and rhythm, S1, S2 normal, no murmur no gallop. Gastrointestinal: Normal bowel sounds, nondistended, nontender, No ascites, , No masses, no hepatosplenomegaly. Extremities : No clubbing, No peripheral edema, full range of motion, no deformity, no muscle atrophy. Integumentary: No rashes, petechia, suspected lesions. Lymphatics: No axilla or cervical lymphadenopathy. Neurology; alert awake oriented x3, no focal neurologic deficit, normal affection . mood and behavior. Assessment And Plan - Plan This is a 74 year old male with COPD not on home oxygen, HTN, HLD. Abdominal ventral hernia he presents with shortness of breath ongoing for the past 3 days. His symptoms are acutely worsening. His associated symptoms include productive cough. He has been found to have multifocal PNA and extensive COPD as per CTA chest. He required BIPAP in the ER and has been weaned off. #1 acute hypoxic respiratory failure due to #2 and 3 stable on nasal cannula 4 L/min, I will taper oxygen off in anticipation of discharge 2. Multifocal pneumonia with sepsis 3. Acute exacerbation of COPD associated with #2 Clinically improving, remained afebrile, gradually improving, leukocytosis rate normalized, serum CO2 26, Test negative for influenza A and B and COVID-19, CT of the chest pulmonary emphysema, multifocal pneumonia with bronchiectasis, no PE Repeat sputum culture reviewed, adequately sputum, suspected Streptococcus pneumonia, I will continue levofloxacin 750 mg twice daily, I will titrate down steroid to prednisone 20 mg twice daily,,keep scheduled DuoNeb, I will order follow-up CBC and BMP tomorrow morning 4. 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
[2024-06-25] MEDS: FLUTICASONE 50MCG NASAL SPRAY NAS SCH (10:30)
[2024-06-25] MEDS: predniSONE 20 MG TAB PO SCH (10:31)
[2024-06-25] MEDS: IPRATROPIUM BROM 0.5MG/2.5ML NEB PRN (21:11)
[2024-06-25 21:17] VITALS: O2SAT 94
[2024-06-26 09:38] LABS: Absolute Lymphocytes (CBC) 0.7 K/uL (0.7-4.9); Absolute Monocytes 0.6 K/uL (0.1-1.3); Absolute Neutrophil 7.1 K/uL (1.8-8.0); Basophils % 0.1 % (0-1.3); Hematocrit 39.1 % (39.6-49.0); Hemoglobin 13.2 g/dL (13.6-17.9); Lymphocytes % 7.7 % (15.3-44.8); MCHC 33.7 g/dL (32.0-36.0); MPV 8.6 fL (7.6-11.3); Monocytes % 7.5 % (3.3-12.3); Neutrophils % 84.7 % (41.7-73.7); Platelets 191 thou/uL (152-406); RBC Red Blood Cell Count 4.12 M/uL (4.33-5.43); Red Cell Distribution Width 13.1 % (12.1-15.2)
[2024-06-26 09:50] LABS: Anion Gap 5.6 mEq/L (5.0-15.0); Potassium 3.6 mEq/L (3.5-5.1)
--- NOTE | 2024-06-26 12:12 | P.PN ---
Subjective Date of Service: 06/26/24 Chief Complaint: COPD exacerbation and multifocal PNA Subjective: No new changes He is complaining of nasal discharge in spite of nasal spray, denied any shortness of breath or chest pain but continued to have intermittent productive cough and shortness of breath on exertion.. Review of Systems Other: Consitutional; fever(-), chills (-), rigor(-), night sweat(-), unintentional weight loss(-), malaise (-) HEENT; diplopia (-), rhinorrhea (-), epistaxis (-), otorrhea (-), otalgia (-), postnasal drip (+) Respiratory; shortness of breath (+), wheezing (-), cough (+), sputum (-), pleuritic chest pain (-) Cardiovascular; chest pain (-), peripheral edema (-), paroxysmal nocturnal dyspnea (-), orthopnea (-) Gastrointestinal; nausea (-), vomiting (-), abdominal pain (-), diarrhea (-), constipation (-), melena (-), hematochezia (-) Genitourinary; urinary frequency (-), dysuria (-), urgency (-), flank pain (-), gross hematuria (-), incontinence (-) Skin; rash (-), 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 General: Chronic ill- looking, in no apparent distress,. HEENT: Normocephalic, atraumatic, nonicteric sclera, nonanemic conjunctive. Neck: Supple, without JVD or goiter or thyroid mass. Respiratory: Normal breathing effort, decreased breath sound bilaterally there with mild expiratory wheezing, crackles at lung bases,. Cardiovascular: Regular rate and rhythm, S1, S2 normal, no murmur no gallop. Gastrointestinal: Normal bowel sounds, nondistended, nontender, No ascites, , No masses, no hepatosplenomegaly. Extremities : No clubbing, No peripheral edema, full range of motion, no deformity, no muscle atrophy. Integumentary: No rashes, petechia, suspected lesions. Lymphatics: No axilla or cervical lymphadenopathy. Neurology; alert awake oriented x3, no focal neurologic deficit, normal affection . mood and behavior. Assessment And Plan - Plan This is a 74 year old male with COPD not on home oxygen, HTN, HLD. Abdominal ventral hernia he presents with shortness of breath ongoing for the past 3 days. His symptoms are acutely worsening. His associated symptoms include productive cough. He has been found to have multifocal PNA and extensive COPD as per CTA chest. He required BIPAP in the ER and has been weaned off. #1 acute hypoxic respiratory failure due to #2 and 3 Oxygen requirement down to 2 L/min from 4 L/min, I will taper oxygen off in anticipation of discharge 2. Multifocal pneumonia with sepsis 3. Acute exacerbation of COPD associated with #2 Clinically improving, remained afebrile, , leukocytosis resolved, Test negative for influenza A and B and COVID-19, CT of the chest pulmonary emphysema, multifocal pneumonia with bronchiectasis, no PE Repeat sputum culture suspected Streptococcus pneumonia, I will continue levofloxacin 750 mg twice daily and prednisone 20 mg twice daily,,keep scheduled DuoNeb, 4. 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
[2024-06-27 08:15] LABS: Albumin 2.7 g/dL (3.4-5.0); Anion Gap 5.6 mEq/L (5.0-15.0); Phosphorus 3.2 mg/dL (2.5-4.9); Potassium 3.6 mEq/L (3.5-5.1)
[2024-06-27] MEDS: LORATADINE/PSEUDO 12HR TAB PO SCH (09:20)
[2024-06-27] MEDS: levoFLOXacin 750 MG TAB PO SCH (09:59)
[2024-06-27] MEDS ORDERED: PANTOPRAZOLE 40MG TABLET PO SCH (10:00)
--- NOTE | 2024-06-27 13:18 | P.DS ---
Admission Date: 06/23/24 Discharge Date: 06/27/24 Disposition: ROUTINE DISCHARGE Discharge Condition: FAIR Reason for Admission: COPD exacerbation and multifocal PNA Brief History of Present Illness: Patient is a 74 year old male with COPD, HTN, HLD. He presents with shortness of breath ongoing for the past 3 days. His symptoms are acutely worsening. His associated symptoms include productive cough. He has been found to have multifocal PNA and extensive COPD as per CTA chest. He required BIPAP in the ER and has been weaned off. During my evaluation, patient was still dyspneic. He is on 3.5 L via nasal cannula. He still having productive cough Hospital Course: Patient is a 74 year old male with COPD, HTN, HLD. He presents with shortness of breath ongoing for the past 3 days. His symptoms are acutely worsening. His associated symptoms include productive cough. He has been found to have multifocal PNA and extensive COPD as per CTA chest. He required BIPAP in the ER and has been weaned off. He was treated with Multifocal pneumonia with sepsis. Improved with IV antibiotics, nebulizers, stable to Discharge home with home 02. Follow up with PCP after discharge, call office for apt. Assessment acute hypoxic respiratory failure due pneumonia Multifocal pneumonia with sepsis Acute exacerbation of COPD Incidental pancreatic cystic tumor symptomatic uncomplicated ventral hernia of abdominal wall Test negative for influenza A and B and COVID-19, CT of the chest pulmonary emphysema, multifocal pneumonia with bronchiectasis, no PE Repeat sputum culture suspected Streptococcus pneumonia, Discharge home on levofloxacin 750 mg twice daily and prednisone 20 mg twice daily, nebs, inhalers Incidental pancreatic cystic tumor CT of the chest demonstrated 1 cm hypodense lesion in body of pancreas, MRI of abdomen results reviewed, two 11mm, 12mm pancreatic cystic lesion in the body of the pancreas, 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 Bentley at [phone] if any questions regarding hospital stay -Please call nursing station at [phone] if any nursing or medication questions -Return to the emergency room if symptoms worsen Diet: ADA, low sodium Activity: Fall precautions Vital Signs/Physical Exam: Temp Pulse Resp BP Pulse Ox 98.0 F 68 15 177/96 H 94 06/27/24 08:00 06/27/24 08:00 06/27/24 08:00 06/27/24 08:00 06/27/24 08:00 General: Alert, In no apparent distress, Oriented x3 HEENT: Atraumatic, Normocephalic Neck: Supple, 2+ carotid pulse no bruit Respiratory: Diminished, Expiratory wheezes Cardiovascular: Normal pulses, Regular rate/rhythm, Normal S1 S2 Capillary refill: <2 Seconds Gastrointestinal: Normal bowel sounds, Soft and benign Musculoskeletal: No clubbing, No swelling Integumentary: No breakdown, No significant lesion Neurological: Normal speech, Normal tone, Sensation intact Other Physical/Emotional Findings: - Physical Exam. General: Chronic ill- looking, in no apparent distress,. HEENT: Normocephalic, atraumatic, nonicteric sclera, nonanemic conjunctive. Neck: Supple, without JVD or goiter or thyroid mass. Respiratory: Normal breathing effort, decreased breath sound bilaterally there with mild expiratory wheezing, crackles at lung bases,. Cardiovascular: Regular rate and rhythm, S1, S2 normal, no murmur no gallop. Gastrointestinal: Normal bowel sounds, nondistended, nontender, No ascites, , No masses, no hepatosplenomegaly. Extremities : No clubbing, No peripheral edema, full range of motion, no deformity, no muscle atrophy. Integumentary: No rashes, petechia, suspected lesions. Lymphatics: No axilla or cervical lymphadenopathy. Neurology; alert awake oriented x3, no focal neurologic deficit, normal affection . mood and behavior. Laboratory Data at Discharge: WBC 8.40 thou/uL (4.3-10.9) 06/26/24 08:58 Hgb 13.2 g/dL (13.6-17.9) L 06/26/24 08:58 Hct 39.1 % (39.6-49.0) L 06/26/24 08:58 Plt Count 191 thou/uL (152-406) 06/26/24 08:58 PT 12.9 SECONDS (9.4-12.5) H 06/22/24 23:30 INR 1.16 06/22/24 23:30 APTT 28.9 SECONDS (24.3-36.9) 06/22/24 23:30 Sodium 143 mEq/L (136-145) 06/27/24 07:52 Potassium 3.6 mEq/L (3.5-5.1) 06/27/24 07:52 BUN 23 mg/dL (7-18) H 06/27/24 07:52 Creatinine 1.08 mg/dL (0.70-1.30) 06/27/24 07:52 Glucose 96 mg/dL (74-106) 06/27/24 07:52 Phosphorus 3.2 mg/dL (2.5-4.9) 06/27/24 07:52 Magnesium 2.0 mg/dL (1.6-2.4) 06/23/24 09:50 Total Bilirubin 0.9 mg/dL (0.2-1.0) 06/22/24 23:30 AST 12 U/L (15-37) L 06/22/24 23:30 ALT 16 U/L (16-61) 06/22/24 23:30 Alkaline Phosphatase 76 U/L (45-117) 06/22/24 23:30 Triglycerides 41 mg/dL (<150) 06/24/24 04:05 Cholesterol 108 mg/dL (<200) 06/24/24 04:05 HDL Cholesterol 46 mg/dL (40-60) 06/24/24 04:05 Cholesterol/HDL Ratio 2.35 06/24/24 04:05 Lipase 14 U/L (13-75) 06/22/24 23:30 Home Medications: Albuterol Sulfate [Proair Hfa] 1 puff PO Q6HR PRN 06/23/24 Ascorbic Acid/Ascorbate Sodium [Vitamin C 500 mg Tablet Chew] 500 mg PO DAILY 06/23/24 Atorvastatin Calcium [Lipitor*] 10 mg PO DAILY 06/23/24 Cholecalciferol (Vitamin D3) [Vitamin D3] 50 mcg PO DAILY 06/23/24 Cyanocobalamin (Vitamin B-12) [Vitamin B12] 1,000 mcg PO DAILY 06/23/24 Fluticasone Propion/Salmeterol [Wixela 250-50 Inhub] 1 puff PO BID 06/23/24 Ipratropium [place] [Atrovent Hfa] 17 mcg PO PRN PRN 06/23/24 Losartan Potassium 50 mg PO DAILY 06/23/24 Sertraline [Zoloft*] 100 mg PO DAILY 06/23/24 Diet: AHA Activity: Fall precautions Followup: Sarah Cabrales MD [Primary Care Provider] - Prakash Pardo MD [ACTIVE - CAN ADMIT] - Time spent managing pt's care (in minutes): 45
[2024-06-27 18:09] VITALS: BP 112/79; TEMP 97.7
[2024-06-28] MEDS ORDERED: PANTOPRAZOLE 40MG TABLET PO SCH (06:30)
== END 2024-06-27 17:20 | disposition home or self-care (01) | DRG 871 ==
LOC: ER 22:59 → ERHOLD 06-23 03:41 → 2ND 06-23 04:19
PROVIDERS: ADMIT Internal Medicine; ATTEND Hospitalist
PROC: 5A09457 Assistance with Respiratory Ventilation, 24-96 Consecutive Hours, Continuous Positive Airway Pressure (ICD-10-PCS; principal; 2024-06-23)
DX: A41.9 Sepsis, unspecified organism (principal); J13 Pneumonia due to Streptococcus pneumoniae; J96.01 Acute respiratory failure with hypoxia; K86.2 Cyst of pancreas; J44.0 Chronic obstructive pulmonary disease with (acute) lower respiratory infection; J44.1 Chronic obstructive pulmonary disease with (acute) exacerbation; I10 Essential (primary) hypertension; R65.20 Severe sepsis without septic shock; I25.2 Old myocardial infarction; K43.9 Ventral hernia without obstruction or gangrene; E78.5 Hyperlipidemia, unspecified; F43.10 Post-traumatic stress disorder, unspecified
CPT/HCPCS: 36415; 71045; 71275; 74183; 80048; 80061; 80069; 80076; 82550; 82805; 82947; 83036; 83605; 83690; 83735; 83880; 84100; 84484; 85025; 85379; 85610; 85730; 87040; 87070; 87077; 87186; 87205; 87804; 87811; 93005; 94660; 94760; 96361; 96365; 96375; 97116; 97161; 99291; 99292; A9577; J0696; J1650; J2185; J2470; J2919; J3535; J7030; J7040; J7050; J7512; J7613; J7644; Q9967